=== PATIENT | male | born 2000 | race African-American/Black ===

== ENCOUNTER 2025-01-14 18:49 | Emergency (ER) | payer MEDICAID ==
[~2025-01-14] VITALS: Ht 177.8 cm; Wt 70.0 kg
[2025-01-14 19:03] VITALS: O2SAT 100
[2025-01-14] MEDS: KETOROLAC 30MG/ML VIAL IM ONE (21:17)
[2025-01-14 23:00] LABS: BASOPHILS % 0.6 % (0.0-2.0); EOSINOPHILS % 1.5 % (0.0-5.0); HEMOGLOBIN. 14.6 g/dL (14.0-18.0); LYMPHOCYTES % 20.4 % (20.0-50.0); MEAN CORPUSCULAR HEMOGLOBIN 31.7 pg (28.0-32.0); MEAN CORPUSCULAR HGB CONC 33.9 g/dL (31.0-37.0); MEAN CORPUSCULAR VOLUME 93.5 fL (80.0-94.0); MEAN PLATELET VOLUME 9.7 fl (7.4-10.4); MONOCYTES % 10.1 % (2.0-8.0); NEUTROPHILS % 67.4 % (40.0-76.0); PLATELET 209 x1000/uL (130-400); RED CELL DISTRIBUTION WIDTH 13.2 % (11.6-14.6); WHITE BLOOD COUNT 11.5 x1000/uL (4.5-11.0)
[2025-01-14 23:10] LABS: CHLORIDE 102 mEq/L (98-107); POTASSIUM 3.8 mEq/L (3.5-5.1); SODIUM 141 mEq/L (136-145)
[2025-01-14 23:11] LABS: CALCIUM 9.8 mg/dL (8.7-10.4); CARBON DIOXIDE 32 mEq/L (21-32)
[2025-01-14 23:16] LABS: CREATININE 1.2 mg/dL (0.6-1.3); GLUCOSE 88 mg/dL (70-105); UREA NITROGEN BLOOD 11 mg/dL (9-23)
[2025-01-15 08:34] VITALS: TEMP 36.8
[2025-01-15 10:37] VITALS: BP 113/80; PULSE 65; RESP 16; O2SAT 100
== END 2025-01-15 10:44 | disposition short-term general hospital (02) ==
LOC: ER 18:49
DX: S02.69XA Fracture of mandible of other specified site, initial encounter for closed fracture (principal); G89.11 Acute pain due to trauma; Y08.89XA Assault by other specified means, initial encounter; Y93.89 Activity, other specified; Y92.89 Other specified places as the place of occurrence of the external cause; Y99.8 Other external cause status
CPT/HCPCS: 99285; 70450; 80048; 85025; 36415; 70486; 96372; J1885

== ENCOUNTER 2025-05-28 00:38 | Emergency (ER) | payer MEDICAID ==
[~2025-05-28] VITALS: Ht 177.8 cm; Wt 80.0 kg
[2025-05-28 00:43] VITALS: TEMP 36.2; O2SAT 99
[2025-05-28 03:10] LABS: CLARITY URINE CLOUDY (CLEAR); COLOR URINE YELLOW (YELLOW); GLUCOSE URINE NEGATIVE (NEGATIVE); KETONES URINE TRACE (NEGATIVE); LEUKOCYTE ESTERASE URINE 2+ (NEGATIVE); NITRITE URINE POSITIVE (NEGATIVE); OCCULT BLOOD URINE NEGATIVE (NEGATIVE); PH URINE 7.0 (4.5-8.0); PROTEIN URINE 1+ (NEGATIVE); SPECIFIC GRAVITY URINE 1.022 (1.005-1.030); UROBILINOGEN URINE 1.0 E.U./dL (0.2-1.0)
[2025-05-28 03:11] LABS: BASOPHILS % 1.3 % (0.0-2.0); EOSINOPHILS % 2.2 % (0.0-5.0); HEMATOCRIT. 44.6 % (42.0-52.0); HEMOGLOBIN. 14.5 g/dL (14.0-18.0); LYMPHOCYTES % 26.2 % (20.0-50.0); MEAN PLATELET VOLUME 10.0 fl (7.4-10.4); MONOCYTES % 6.0 % (2.0-8.0); NEUTROPHILS % 64.3 % (40.0-76.0); PLATELET 233 x1000/uL (130-400); RED BLOOD CELL COUNT 4.77 mill/uL (4.7-6.1); RED CELL DISTRIBUTION WIDTH 14.0 % (11.6-14.6)
[2025-05-28 03:19] LABS: CREATININE 1.2 mg/dL (0.6-1.3); UREA NITROGEN BLOOD 9 mg/dL (9-23)
[2025-05-28 03:21] LABS: ASPARTATE AMINOTRANSFERASE 39 IU/L (<34); BILIRUBIN DIRECT 0.1 mg/dL (<=3.0)
[2025-05-28 03:22] LABS: BILIRUBIN TOTAL 0.4 mg/dL (0.1-1.0); PROTEIN TOTAL 7.4 g/dL (6.0-8.3)
[2025-05-28 03:48] LABS: SQUAMOUS EPITHELIAL CELL URINE 1+ /lpf (RARE/1+)
[2025-05-28 03:54] LABS: RBC URINE 0-2 /hpf (0-2)
[2025-05-28 03:55] LABS: BACTERIA URINE 3+
[2025-05-28] MEDS: LIDOCAINE HCL 1% 20ML VIAL INFIL ONE (04:30)
[2025-05-28] MEDS: CEFTRIAXONE SODIUM 1G VIAL IM ONE (05:21)
[2025-05-28] MEDS ORDERED: AMOX1TAB16 MT (05:48)
[2025-05-28] MEDS ORDERED: DOXY100T2 MT (05:48)
[2025-05-28 06:03] VITALS: BP 139/92; PULSE 60; RESP 18; O2SAT 100
== END 2025-05-28 06:07 | disposition home or self-care (01) ==
LOC: ER 00:38
DX: N43.3 Hydrocele, unspecified (principal); N50.89 Other specified disorders of the male genital organs
CPT/HCPCS: 80076; 80048; 81003; 83690; 85025; 36415; 93976; 76870; 96372; 99285; J0696; J2003; Z7610